=== PATIENT | male | born 1990 | race Caucasian/White ===

== ENCOUNTER 2018-11-07 15:38 | Emergency (ER) | payer OTHER ==
[~2018-11-07] VITALS: Ht 172.7 cm; Wt 68.0 kg
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
--- NOTE | 2018-11-07 20:18 | NUR ---
PT AMBULATORY WITH STEADY GAIT
--- NOTE | 2018-11-07 21:06 | NUR ---
Patient discharged to home in stable condition. Written and verbal after care instructions given. Patient verbalizes understanding of instruction.
[2018-11-07 21:07] VITALS: BP 122/75
== END 2018-11-07 21:08 | disposition home or self-care (01) ==
LOC: EDBD 15:41 → ER 15:41
DX: F10.129 Alcohol abuse with intoxication, unspecified (principal); Y90.9 Presence of alcohol in blood, level not specified
CPT/HCPCS: 99283; A4606; Z7610

== ENCOUNTER 2018-11-09 17:52 | Emergency (ER) | payer OTHER ==
[~2018-11-09] VITALS: Ht 170.2 cm; Wt 65.8 kg
[2018-11-09 18:50] VITALS: BP 154/74
[2018-11-09] MEDS ORDERED: IBUPROFEN 600 MG TABLET PO ONE ×2 (19:30→19:52)
--- NOTE | 2018-11-09 19:58 | NUR ---
Patient discharged to home in stable condition. Written and verbal after care instructions given. Patient verbalizes understanding of instruction.
== END 2018-11-09 20:00 | disposition home or self-care (01) ==
LOC: ER 17:54
DX: I87.8 Other specified disorders of veins (principal); M79.89 Other specified soft tissue disorders; G89.29 Other chronic pain; F10.10 Alcohol abuse, uncomplicated; B35.3 Tinea pedis; R23.8 Other skin changes; Z59.0 Homelessness
CPT/HCPCS: 99282; A4606; Z7610

== ENCOUNTER 2018-11-11 11:35 | Emergency (ER) | payer OTHER ==
[~2018-11-11] VITALS: Ht 170.2 cm; Wt 72.6 kg
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
--- NOTE | 2018-11-11 12:50 | NUR ---
ULTRA SOUND AT BEDSIDE FOR LEFT LEG SWELLING
--- NOTE | 2018-11-11 14:15 | NUR ---
PT GIVEN MEAL TRAY PENDING DISPOSITION
--- NOTE | 2018-11-11 15:23 | NUR ---
PT TOOK OFF MONITORING LEADS WANTS TO GET DRESS AND GO MADE AWARE
--- NOTE | 2018-11-11 15:43 | NUR ---
PT UP TO BATH ROOM AND BACK WANTS TO LEAVE PT NOTED TO BE SHAKING GIVEN WATER TO DRINK WILL CONTINUE TO MONITOR
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
[2018-11-11 15:52] VITALS: BP 123/79
== END 2018-11-11 15:54 | disposition home or self-care (01) ==
LOC: ER 11:37
DX: F10.129 Alcohol abuse with intoxication, unspecified (principal); Z59.0 Homelessness; Y90.9 Presence of alcohol in blood, level not specified
CPT/HCPCS: 70450-TC; 93971-TC